=== PATIENT | male | born 1940 | race Caucasian/White ===

== ENCOUNTER → 2017-06-15 | Outpatient (CLI) | payer OTHER | LOC: BMCIMAGING 10:17 | PROVIDERS: ATTEND Internal Medicine | DX: J10.1 Influenza due to other identified influenza virus with other respiratory manifestations (principal); I70.0 Atherosclerosis of aorta; J40 Bronchitis, not specified as acute or chronic; M51.34 Other intervertebral disc degeneration, thoracic region ==